=== PATIENT | female | born 1990 | race Caucasian/White ===

== ENCOUNTER 2020-10-19 14:17 | Emergency (ER) | payer MEDICAID ==
[~2020-10-19] VITALS: Ht 165.1 cm; Wt 101.2 kg
[2020-10-19 14:21] VITALS: BP 117/75
[2020-10-19 15:24] VITALS: BP 133/74
== END 2020-10-19 15:24 | disposition home or self-care (01) ==
LOC: MED 14:17
DX: M25.561 Pain in right knee (principal)
CPT/HCPCS: 99282